=== PATIENT | female | born 2000 | race Caucasian/White ===

== ENCOUNTER 2023-01-26 20:11 | Inpatient (IN) | payer OTHER, BC ==
[~2023-01-26 20:11] MED LIST: Iopamidol-370 76% 500 ML MDV (1 ML CHARGE) ONE
[2023-01-26 20:36] LABS: #Basophils 0.1 thou/uL (0.0-0.2); #Eosinphils 0.2 thou/uL (0.0-0.7); #Lymphocytes 3.7 thou/uL (1.20-3.40); #Monocytes 0.4 thou/uL (0.11-0.59); #Neutrophils 9.5 thou/uL (1.40-6.50); %Basophils 0.9 % (0.0-1.0); %Eosinophils 1.7 % (0.0-10.0); %Lymphocytes 26.4 % (21.0-51.0); %Neutrophils 68.1 % (42.0-75.0); Mean Corpuscular HGB CONC 34.8 g/dL (32.0-36.0); Mean Corpuscular Hemoglobin 32.2 pg (27.0-31.0); Mean Corpuscular Volume 92.6 fl (78.0-98.0); Mean Platelet Volume 7.8 fL (7.4-10.4); Platelet Count 263 10x3/uL (130-400); RBC Distribution Width 11.8 % (11.5-14.5); Red Blood Cell (RBC) Count 4.65 mill/uL (4.20-5.40)
[2023-01-26 20:43] LABS: BHCG - Serum Negative (NEGATIVE); Pregs Control Background? CLEAR/WHITE (CLR/WHITE); Pregs Control Bar Appear? YES (CONTROL BAR)
[2023-01-26 20:51] LABS: ALT (SGPT) 72 U/L (8-55); AST (SGOT) 113 U/L (5-34); Albumin 4.5 g/dL (3.5-5.0); Alkaline Phosphatase 77 U/L (40-110); Anion Gap 18 mmol/L (10-20); BUN (Urea Nitrogen) 15 mg/dL (7.0-18.7); Bilirubin, Total 0.5 mg/dL (0.2-1.2); Calc. Creatinine Clearance 0 mL/min (70-130); Calcium 9.1 mg/dL (7.8-10.44); Carbon Dioxide 19 mmol/L (22-29); Chloride 104 mmol/L (98-107); Estimated GFR 76; Glucose 94 mg/dL (70-105); Protein, Total 7.5 g/dL (6.0-8.3); Sodium 138 mmol/L (136-145)
[2023-01-26] MEDS ORDERED: Ondansetron PF 4 MG/2 ML Vial ONE ×2 (21:18→22:18)
[2023-01-26] MEDS ORDERED: Morphine 2 MG/ML VIAL ONE (21:18)
[2023-01-26] MEDS ORDERED: TETANUS, DIPHTHERIA TOX,ADULT (TDVAX) 0.5 ML VIAL IM ONE (22:12)
[2023-01-26] MEDS ORDERED: Ondansetron PF 4 MG/2 ML Vial IVP PRN (22:12)
[2023-01-26] MEDS ORDERED: Dextrose 5% in Water 1,000 ML IV PRN (22:12)
[2023-01-26] MEDS ORDERED: Ondansetron ODT 4 MG TAB PO PRN (22:12)
[2023-01-26] MEDS ORDERED: Dextrose 50% Abboject 50 ML SYRINGE SLOW IVP PRN (22:12)
[2023-01-26] MEDS ORDERED: Potassium Chloride 20 MEQ TAB PO SCH (22:15)
[2023-01-26] MEDS ORDERED: Sodium Chloride 0.9% 1,000 ML IV SCH (22:15)
[2023-01-26] MEDS ORDERED: Acetaminophen/Codeine 30-300mg Tablet PO PRN (22:17)
[2023-01-26] MEDS ORDERED: Morphine 4 MG/ML VIAL ONE (22:18)
[2023-01-26 23:13] LABS: INR-International Normal Ratio 1.2; PTT 30.3 sec (22.9-36.1); Prothrombin Time 15.4 sec (12.0-14.7)
[2023-01-27] MEDS: Ibuprofen 200 MG TAB PO SCH ×4 (00:27→17:03)
[2023-01-27] MEDS: Acetaminophen/Codeine 30-300mg Tablet PO SCH ×4 (00:28→17:04)
[2023-01-27 01:22] VITALS: BMI 18.6
[2023-01-27 07:02] LABS: #Lymphocytes 1.2 thou/uL (1.20-3.40); #Monocytes 0.5 thou/uL (0.11-0.59); #Neutrophils 11.6 thou/uL (1.40-6.50); %Basophils 0.1 % (0.0-1.0); %Eosinophils 0.1 % (0.0-10.0); %Lymphocytes 9.1 % (21.0-51.0); %Monocytes 3.9 % (0.0-10.0); %Neutrophils 86.8 % (42.0-75.0); Hemoglobin 13.1 g/dL (12.0-16.0); Mean Corpuscular Volume 91.6 fl (78.0-98.0); Mean Platelet Volume 7.9 fL (7.4-10.4); Platelet Count 200 10x3/uL (130-400); RBC Distribution Width 11.6 % (11.5-14.5); Red Blood Cell (RBC) Count 4.08 mill/uL (4.20-5.40); White Blood Cell (WBC) Count 13.4 10x3/uL (4.8-10.8)
[2023-01-27 07:12] LABS: Anion Gap 13 mmol/L (10-20); BUN (Urea Nitrogen) 13 mg/dL (7.0-18.7); Calc. Creatinine Clearance 88 mL/min (70-130); Calcium 8.7 mg/dL (7.8-10.44); Carbon Dioxide 20 mmol/L (22-29); Chloride 108 mmol/L (98-107); Estimated GFR 115; Glucose 106 mg/dL (70-105); Magnesium 1.7 mg/dL (1.6-2.6); Phosphorus 3.7 mg/dL (2.3-4.7); Potassium 4.3 mmol/L (3.5-5.1); Sodium 137 mmol/L (136-145)
[2023-01-27] MEDS ORDERED: Ferrous Sulfate 325 MG TAB PO SCH (08:00)
[2023-01-27] MEDS: Ascorbic Acid 500 mg Chewable Tablet PO SCH (08:23)
[2023-01-27] MEDS: Gabapentin 300 MG CAP PO SCH ×3 (08:28→21:06)
[2023-01-27] MEDS: lamoTRIgine 100 MG TAB PO SCH ×2 (08:28→21:06)
[2023-01-27] MEDS: Famotidine 20 MG TAB PO SCH ×2 (08:28→21:06)
[2023-01-27] MEDS: Ferrous Sulfate 325 MG TAB PO SCH (08:55)
[2023-01-27] MEDS ORDERED: Iopamidol-370 76% 500 ML MDV (1 ML CHARGE) ONE (09:26)
[2023-01-27] MEDS ORDERED: Cyclobenzaprine 10 MG TAB PO PRN (17:40)
[2023-01-28] MEDS: Acetaminophen/Codeine 30-300mg Tablet PO SCH ×3 (00:01→11:38)
[2023-01-28] MEDS: Ibuprofen 200 MG TAB PO SCH ×3 (00:01→11:38)
[2023-01-28] MEDS: Ascorbic Acid 500 mg Chewable Tablet PO SCH (09:39)
[2023-01-28] MEDS: Ferrous Sulfate 325 MG TAB PO SCH (09:39)
[2023-01-28] MEDS: Gabapentin 300 MG CAP PO SCH (09:39)
[2023-01-28] MEDS: Famotidine 20 MG TAB PO SCH (09:39)
[2023-01-28] MEDS: lamoTRIgine 100 MG TAB PO SCH (09:39)
[2023-01-28 15:26] VITALS: BP 99/63; TEMP 98.3
[2023-01-28] MEDS ORDERED: lamoTRIgine 100 MG TAB PO SCH (21:00)
== END 2023-01-28 16:20 | disposition home or self-care (01) | DRG 552 ==
LOC: ERS 20:11 → SURG A 22:12
PROVIDERS: ADMIT Student in an Organized Health Care Education/Training Program; ATTEND Student in an Organized Health Care Education/Training Program
DX: S32.19XA Other fracture of sacrum, initial encounter for closed fracture (principal); S32.592A Other specified fracture of left pubis, initial encounter for closed fracture; G40.909 Epilepsy, unspecified, not intractable, without status epilepticus; F41.9 Anxiety disorder, unspecified; F32.A Depression, unspecified; E87.6 Hypokalemia; Z79.899 Other long term (current) drug therapy; Z83.49 Family history of other endocrine, nutritional and metabolic diseases; V43.52XA Car driver injured in collision with other type car in traffic accident, initial encounter; Y92.410 Unspecified street and highway as the place of occurrence of the external cause
CPT/HCPCS: 36415; 51600; 70450; 71260; 72125; 72170; 74177; 74430; 80048; 80053; 83735; 84100; 84703; 85025; 85610; 85730; 96374; 96375; 96376; G0390; J1650; J2270; J2272; J2405; J7050; Q9967